=== PATIENT | female | born 1950 | race Caucasian/White ===

== ENCOUNTER 2019-06-27 10:25 | Outpatient (CLI) | payer OTHER ==
--- NOTE | 2019-06-27 11:34 | MMO ---
Bilateral MAMMO Bilat Diag DDI+CHRISTY. CLINICAL HISTORY: Patient is 69 years old and is seen for diagnostic exam. The patient has the following family history of breast cancer: sister, at age 68, malignant (generic). The patient has no personal history of cancer. VIEWS: The views performed were: bilateral craniocaudal with tomosynthesis; bilateral mediolateral oblique with tomosynthesis; and bilateral mediolateral with tomosynthesis. FILMS COMPARED: The present examination has been compared to prior imaging studies performed at [facility] on 06/27/2019, and at [facility] on 10/21/2010 and 10/29/2010. This study has been interpreted with the assistance of computer-aided detection. MAMMOGRAM FINDINGS: There are scattered fibroglandular densities. Finding 1: There is a high density, irregular mass with spiculated margins seen in the left breast at 7 o'clock. A hypoechoic irregular mass is seen sonographically. Finding 2: There are benign appearing calcifications seen in both breasts. IMPRESSION: FINDING 1: MASS IN THE LEFT BREAST IS HIGHLY SUGGESTIVE OF MALIGNANCY. AN ULTRASOUND-GUIDED BREAST BIOPSY IS RECOMMENDED. RESULTS AND RECOMMENDATIONS DISCUSSED WITH THE PATIENT AND QUESTIONS ANSWERED. THE RESULTS OF THIS EXAM WERE SENT TO THE PATIENT. ACR BI-RADS Category 5 - Highly suggestive of malignancy - appropriate action should be taken MAMMOGRAPHY NOTE: 1. A negative mammogram report should not delay a biopsy if a dominant of clinically suspicious mass is present. 2. Approximately 10% to 15% of breast cancers are not detected by mammography. 3. Adenosis and dense breasts may obscure an underlying neoplasm. Reported by: MIRTA DIAZ MD Electonically Signed: [id number]
--- NOTE | 2019-06-27 13:30 | ULT ---
LIMITED LEFT BREAST ULTRASOUND: DATE: 06/27/2019. PROVIDED CLINICAL HISTORY: Left breast mass. FINDINGS: Limited sonographic interrogation was performed of the left breast at the 7 o'clock position in the r egion of palpable and mammographic concern. There is an irregular shadowing hypoechoic mass at the 7 o'clock position of the left breast measuring about 2 cm maximally. Sonographic interrogation of th e left axilla demonstrates no evidence for lymph node enlargement. IMPRESSION: BIRADS category 5 - highly suspicious for malignancy. Ultrasound-guided biopsy is recommended. Results and recommendations discussed with the patient and questions answered. CODE CR POS: OFF
--- NOTE | 2019-06-27 13:36 | MMO ---
Left Breast MAMMO Unilat Diag DDI LT. CLINICAL HISTORY: Patient is 69 years old and is seen for diagnostic exam. VIEWS: The views performed were: . FILMS COMPARED: The present examination has been compared to prior imaging studies performed at [facility] on 06/27/2019, and at [facility] on 10/21/2010 and 10/29/2010. This study has been interpreted with the assistance of computer-aided detection. MAMMOGRAM FINDINGS: There are scattered fibroglandular densities. There is a new biopsy clip seen in the left breast. IMPRESSION: NEW BIOPSY CLIP IN THE LEFT BREAST IS CONFIRMED UTILIZING POST PROCEDURE MAMMOGRAM. THE RESULTS OF THIS EXAM WERE SENT TO THE PATIENT. MAMMOGRAPHY NOTE: 1. A negative mammogram report should not delay a biopsy if a dominant of clinically suspicious mass is present. 2. Approximately 10% to 15% of breast cancers are not detected by mammography. 3. Adenosis and dense breasts may obscure an underlying neoplasm. Reported by: MIRTA DIAZ MD Electonically Signed: [id number]
--- NOTE | 2019-06-27 15:47 | ULT ---
ULTRASOUND GUIDED LEFT BREAST BIOPSY: 06/27/2019 PROVIDED CLINICAL HISTORY: Left breast mass. FINDINGS: Informed consent was obtained from the patient. The patient was placed on the sonography table and th e previously described 7 o'clock left breast mass was localized. The skin overlying this region was p repped and draped in the usual sterile manner. A small skin incision was made after anesthetizing the skin and subcutaneous tissues with 1% buffered Lidocaine. Under continuous sonographic guidance a 14 gauge biopsy device was utilizing to obtain four core samples. Subsequently, continued sonographic g uidance was utilized to deploy a biopsy site marker within the mass. [place] were removed and hemosta sis achieved. No immediate complications. IMPRESSION: Technically successful ultrasound-guided left breast biopsy. Please correlate with histology results to follow. POS: OFF
== END 2019-06-27 10:26 | disposition home or self-care (01) ==
LOC: BICMAMMO 10:25
PROVIDERS: ATTEND Family Medicine
DX: N63.20 Unspecified lump in the left breast, unspecified quadrant (principal)
CPT/HCPCS: 19083; 77066; 88305; 88341; 88342; G0279

== ENCOUNTER 2019-07-19 06:17 | Outpatient (CLI) | payer OTHER ==
[2019-07-19 16:14] LABS: #Eosinphils 0.1 thou/uL (0.0-0.7); #Lymphocytes 2.5 thou/uL (1.20-3.40); #Monocytes 0.7 thou/uL (0.11-0.59); #Neutrophils 4.7 thou/uL (1.40-6.50); %Basophils 0.4 % (0.0-1.0); %Eosinophils 1.2 % (0.0-10.0); %Lymphocytes 30.8 % (21.0-51.0); %Monocytes 9.1 % (0.0-10.0); %Neutrophils 58.5 % (42.0-75.0); Hemoglobin 14.5 g/dL (12.0-16.0); Mean Corpuscular HGB CONC 32.9 g/dL (32.0-36.0); Mean Corpuscular Volume 91.3 fL (78.0-98.0); Mean Platelet Volume 7.5 fL (7.4-10.4); Platelet Count 271 thou/uL (130-400); RBC Distribution Width 12.2 % (11.5-14.5); Red Blood Cell (RBC) Count 4.83 mill/uL (4.20-5.40)
[2019-07-19 16:37] LABS: Anion Gap 13 mmol/L (10-20); BUN (Urea Nitrogen) 18 mg/dL (9.8-20.1); Calc. Creatinine Clearance 0 mL/min (70-130); Calcium 9.5 mg/dL (7.8-10.44); Carbon Dioxide 22 mmol/L (23-31); Chloride 108 mmol/L (98-107); Estimated GFR-MDRD 70; Glucose 99 mg/dL (83-110); Potassium 3.6 mmol/L (3.5-5.1); Sodium 139 mmol/L (136-145)
== END 2019-07-19 06:18 | disposition home or self-care (01) ==
LOC: LABBT 06:17
PROVIDERS: ATTEND Surgery
DX: Z01.812 Encounter for preprocedural laboratory examination (principal); C50.912 Malignant neoplasm of unspecified site of left female breast
CPT/HCPCS: 80048; 85025; 93005; 93010

== ENCOUNTER 2019-07-21 06:58 | Day surgery (SDC) | payer OTHER ==
[2019-07-19 15:09] VITALS: BMI 28.3
[2019-07-21] MEDS ORDERED: Lidocaine 1% PF 5 ML VIAL ONE (09:15)
[2019-07-21] MEDS ORDERED: ePHEDrine/0.9% NaCl/PF SYRINGE 50 mg/10 ml ONE (09:15)
[2019-07-21] MEDS ORDERED: Ondansetron PF 4 MG/2 ML Vial ONE (09:15)
[2019-07-21] MEDS ORDERED: PROPOFOL 200 MG/20 ML VIAL ONE (09:15)
--- NOTE | 2019-07-21 09:35 | NM ---
Nuclear medicine lymphoscintigraphy breast: HISTORY: 69-year-old female with left breast cancer. Lymphoscintigraphy for sentinel lymph node identification and surgical biopsy. TECHNIQUE: All injections preceded by alcohol swabbing. A series of 30-gauge needles used to inject buffered lid ocaine initially in periareolar 4 quadrants of left breast. A second series of 30-gauge needles used to inject 0.4 mCi of technetium 99m-filtered sulfur colloid cutaneously in same locations. Immed iate scintigraphy in anterior and lateral views. FINDINGS: There is uptake in a left axillary lymph node. IMPRESSION: Successful lymphoscintigraphy, with identification of sentinel lymph node.
--- NOTE | 2019-07-21 09:59 | MMO ---
Mammographically guided needle localization left breast: DATE: 07/21/2019 HISTORY: 69-year-old female with recently biopsy proven malignant neoplasm of lower outer quadrant of left [place] ast presents for localization for guidance for lumpectomy. TECHNIQUE: Signed informed consent obtained. Using mammographic grid system, breast was compressed in fenestrate d paddle in LCC view. Inferior approach. At the inframammary fold, the skin was prepped with ChloraPrep. 25-gauge needle used to apply buffered lidocaine. 20-gauge 3 cm [place] needle advanced. Wi re deployed. True lateral View obtained. The [place] needle and wire were covered with cup. Patient tolerated procedure well. No complications. FINDINGS: The [place] needle pierces the targeted tumor mass, and passes beyond it superiorly with the wire tip a pproximately 1.5 cm superior to the mass. This was necessary because of the very superficial location of the mass, such that there was risk of needle dislodgment if the needle tip were placed in a more shallow location. IMPRESSION: Successful left breast needle localization.
[2019-07-21] MEDS ORDERED: Methylene Blue 50 MG/10 ML AMPUL ONE (10:42)
[2019-07-21] MEDS ORDERED: Lidocaine 2% w/Epinephrine 1:200K 20 ML VIAL ONE ×2 (10:42→10:53)
[2019-07-21] MEDS ORDERED: EPINEPHrine 1 MG/ML AMP ONE (10:42)
[2019-07-21] MEDS ORDERED: Bupivacaine 0.25% HCL 30 ML VIAL ONE (10:42)
[2019-07-21] MEDS ORDERED: Isosulfan Blue 50 MG/5 ML VIAL ONE (10:45)
[2019-07-21] MEDS ORDERED: Lidocaine 2% PF 5 ML VIAL ONE (10:53)
[2019-07-21] MEDS ORDERED: Fentanyl 100 MCG/2 ML VIAL ONE (10:56)
[2019-07-21] MEDS ORDERED: Midazolam HCl 2 mg/2 ml Vial ONE (11:02)
[2019-07-21] MEDS ORDERED: Promethazine HCl 25 MG/ML VIAL ONE (11:09)
[2019-07-21] MEDS ORDERED: Propofol 1,000 MG/100 ML VIAL IV ONE (11:09)
[2019-07-21] MEDS ORDERED: Lidocaine 1% w/Epinephrine 1:100K 20 ML VIAL ONE (11:44)
--- NOTE | 2019-07-21 12:33 | MMO ---
Radiograph surgical specimen: DATE: 07/21/2019 HISTORY: 69-year-old female with breast cancer: Malignant neoplasm of lower outer quadrant of left breast. Sta tus post mammographically guided needle localization and surgical excision. FINDINGS: The tissue specimen contains the spiculated tumor mass with biopsy clip, and the entire [place] needle with wire. IMPRESSION: Successful surgical excision and successful mammographically guided needle localization.
--- NOTE | 2019-07-21 17:51 | OP ---
DATE OF PROCEDURE: 07/21/2019 PREOPERATIVE DIAGNOSIS: Left breast cancer, clinical stage T1 N0 MX. POSTOPERATIVE DIAGNOSIS: Left breast cancer, clinical stage T1 N0 MX. PROCEDURES PERFORMED: 1. Partial mastectomy, left breast after needle localization. 2. Left sentinel node biopsy (deep axillary node biopsy). ANESTHESIA: General. ESTIMATED BLOOD LOSS: Minimal. COMPLICATIONS: None. SPECIMEN: 1. Left breast mass marked with two short superior, one long lateral. Specimen x-ray reveals previous clip to be in the specimen. 2. Left sentinel node sent as 1 and 2. DESCRIPTION OF PROCEDURE: The patient had undergone preop placement of needle localization wire to the area of previous biopsy in the left inferior medial breast. She had also undergone lymphoscintigraphy revealing uptake in the left axilla, taken to the operating room and laid supine on the table. After general anesthetic was obtained, a curved incision was made on the inferior hairline of the left axilla. Cautery was dissected down through clavipectoral fascia. Neoprobe was used to find the area of increased uptake. There was uptake to 1200. This was sent off as sentinel node #1. There was a second area of lymph nodes with counts of 200 and 300, that was sent as sentinel node #2. The background count then dropped to zero. The wound was irrigated. Local anesthetic was applied. The wound was closed using 3-0 Vicryl, 4-0 Monocryl, and Dermabond. Next, elliptical incision was used to ellipse out where the needle localization wire goes in the chest and the left breast. This was because there was retraction of the skin just over the tumor. Flaps were raised superomedially and inferolaterally all the way around the end of needle localization wire. Specimen was sent to Path, where specimen x-ray revealed the clip to be in the specimen. The wound was irrigated and closed using 3-0 Vicryl, 4-0 Monocryl, and Dermabond. The patient was sent to Recovery in stable condition. All instrument counts, needle counts, and lap counts were correct. Job ID: [id number]
== END 2019-07-21 15:15 | disposition home or self-care (01) ==
LOC: SDC 06:58
PROVIDERS: ATTEND Surgery
PROC: 07B60ZX Excision of Left Axillary Lymphatic, Open Approach, Diagnostic (ICD-10-PCS; principal; 2019-07-21)
PROC: 0HBU0ZZ Excision of Left Breast, Open Approach (ICD-10-PCS; principal; 2019-07-21)
DX: C50.212 Malignant neoplasm of upper-inner quadrant of left female breast (principal); F41.9 Anxiety disorder, unspecified; M19.90 Unspecified osteoarthritis, unspecified site; J30.2 Other seasonal allergic rhinitis; E78.5 Hyperlipidemia, unspecified; I10 Essential (primary) hypertension; E03.9 Hypothyroidism, unspecified; Z87.891 Personal history of nicotine dependence; Z17.0 Estrogen receptor positive status [ER+]; Z79.899 Other long term (current) drug therapy; Z91.041 Radiographic dye allergy status
CPT/HCPCS: 19281; 76098; 78195; 88307; 88342; A9541; J0171; J0690; J2001; J2250; J2405; J2550; J2704; J3010; Q9968; S0020

== ENCOUNTER 2019-09-09 10:45 | Outpatient (CLI) | payer OTHER ==
--- NOTE | 2019-09-09 13:06 | BD ---
BONE DENSITOMETRY: Date: 09/09/2019 INDICATION: Postmenopausal screening. FINDINGS: Lumbar Spine: BMD (g/cm2) L1 0.887 T-Score: -0.9 L2 0.920 T-Score: -1.0 L3 0.926 T-Score: -1.4 L4 0.903 T-Score: -1.4 Total 0.910 T-Score: -1.2 Left Femoral Neck: 0.710 T-Score: -1.3 Total Femur: 0.865 T-Score: -0.6 IMPRESSION: Bone mineral density of the lumbar spine and femoral neck both indicate osteopenia. 10 YEAR FRACTURE RISK: Major osteoporotic fracture: 9.5% Hip fracture: 2.0% POS: [facility]
== END 2019-09-09 10:46 | disposition home or self-care (01) ==
LOC: BICMAMMO 10:45
PROVIDERS: ATTEND Internal Medicine Hematology & Oncology
DX: Z13.820 Encounter for screening for osteoporosis (principal); M85.89 Other specified disorders of bone density and structure, multiple sites; Z78.0 Asymptomatic menopausal state
CPT/HCPCS: 77080

== ENCOUNTER 2020-07-04 13:48 | Outpatient (CLI) | payer OTHER ==
--- NOTE | 2020-07-04 14:32 | MMO ---
Bilateral MAMMO Bilat Diag DDI+CHRISTY. CLINICAL HISTORY: Patient is 70 years old and is seen for diagnostic exam. The patient has the following family history of breast cancer: sister, at age 68, malignant (generic). The patient has a history of Ultrasound guided core biopsy procedure revealed invasive ductal left breast carcinoma in June,. VIEWS: The views performed were: bilateral craniocaudal with tomosynthesis; bilateral mediolateral oblique with tomosynthesis; bilateral mediolateral with tomosynthesis; and cleavage view with tomosynthesis. FILMS COMPARED: The present examination has been compared to prior imaging studies performed at [facility] on 06/27/2019, and at [facility] on 10/29/2010. This study has been interpreted with the assistance of computer-aided detection. MAMMOGRAM FINDINGS: There are scattered fibroglandular densities. Benign calcifications are noted bilaterally. There are left sided post-op changes There are no suspicious masses, suspicious calcifications, or new areas of architectural distortion. IMPRESSION: THERE IS NO MAMMOGRAPHIC EVIDENCE OF MALIGNANCY. A ROUTINE FOLLOW-UP MAMMOGRAM IN 1 YEAR IS RECOMMENDED. THE RESULTS OF THIS EXAM WERE SENT TO THE PATIENT. ACR BI-RADS Category 2 - Benign finding MAMMOGRAPHY NOTE: 1. A negative mammogram report should not delay a biopsy if a dominant of clinically suspicious mass is present. 2. Approximately 10% to 15% of breast cancers are not detected by mammography. 3. Adenosis and dense breasts may obscure an underlying neoplasm. Reported by: FLORESITA DAVIDSON MD Electonically Signed: [id number]
== END 2020-07-04 13:49 | disposition home or self-care (01) ==
LOC: BICMAMMO 13:48
PROVIDERS: ATTEND Family Medicine
DX: Z08 Encounter for follow-up examination after completed treatment for malignant neoplasm (principal); Z85.3 Personal history of malignant neoplasm of breast
CPT/HCPCS: 77066; G0279

== ENCOUNTER 2020-09-26 13:29 | Outpatient (CLI) | payer OTHER | END 2020-09-26 13:30 | disposition home or self-care (01) | LOC: BICMAMMO 13:29 | PROVIDERS: ATTEND Internal Medicine Hematology & Oncology | DX: M85.80 Other specified disorders of bone density and structure, unspecified site (principal); T38.6X5A Adverse effect of antigonadotrophins, antiestrogens, antiandrogens, not elsewhere classified, initial encounter | CPT/HCPCS: 77080 ==

== ENCOUNTER 2021-07-16 10:21 | Outpatient (CLI) | payer MEDICARE, OTHER | END 2021-07-16 10:22 | disposition home or self-care (01) | LOC: BICMAMMO 10:21 | PROVIDERS: ATTEND Family Medicine | DX: Z08 Encounter for follow-up examination after completed treatment for malignant neoplasm (principal); Z85.3 Personal history of malignant neoplasm of breast | CPT/HCPCS: 77066; G0279 ==

== ENCOUNTER 2022-07-29 10:17 | Outpatient (CLI) | payer MEDICARE, OTHER | END 2022-07-29 10:18 | disposition home or self-care (01) | LOC: BICMAMMO 10:17 | PROVIDERS: ATTEND Family Medicine | DX: C50.912 Malignant neoplasm of unspecified site of left female breast (principal); R92.8 Other abnormal and inconclusive findings on diagnostic imaging of breast; Z98.890 Other specified postprocedural states; Z80.3 Family history of malignant neoplasm of breast | CPT/HCPCS: 77066; G0279 ==

== ENCOUNTER 2022-10-03 10:17 | Outpatient (CLI) | payer MEDICARE, OTHER | END 2022-10-03 10:18 | disposition home or self-care (01) | LOC: BICMAMMO 10:17 | PROVIDERS: ATTEND Internal Medicine Hematology & Oncology | DX: Z13.820 Encounter for screening for osteoporosis (principal); T38.6X5A Adverse effect of antigonadotrophins, antiestrogens, antiandrogens, not elsewhere classified, initial encounter; M85.89 Other specified disorders of bone density and structure, multiple sites | CPT/HCPCS: 77080 ==

== ENCOUNTER 2023-07-30 13:28 | Outpatient (CLI) | payer MEDICARE, OTHER | END 2023-07-30 13:29 | disposition home or self-care (01) | LOC: BICMAMMO 13:28 | PROVIDERS: ATTEND Family Medicine | DX: Z08 Encounter for follow-up examination after completed treatment for malignant neoplasm (principal); M85.80 Other specified disorders of bone density and structure, unspecified site; Z85.3 Personal history of malignant neoplasm of breast | CPT/HCPCS: 77066; G0279 ==